=== PATIENT | female | born 1960 | race Caucasian/White ===

== ENCOUNTER → 2020-02-19 | Outpatient (CLI) | payer BC | LOC: MAMMO 13:52 | PROVIDERS: ATTEND Obstetrics & Gynecology | DX: Z12.31 Encounter for screening mammogram for malignant neoplasm of breast (principal) | CPT/HCPCS: 77067 ==

== ENCOUNTER 2020-03-04 13:57 | Emergency (ER) | payer BC ==
[~2020-03-04] VITALS: Ht 157.5 cm; Wt 68.0 kg
--- NOTE | 2020-03-04 14:17 | Emergency Department Note ---
History of Present Illnes History of Present Illness Chief Complaint: General Medicine Complaints History of Present Illness This is a 59 year old female . presented to ed c/o vag bleeding sent to ed per Dr Arellano for eval Historian: Patient Arrival Mode: Car Past Medical/Family History Physician Review I have reviewed the patient's past medical and family history. Any updates have been documented here. Past Medical History Recent Fever: No Clinical Suspicion of Infectio: No New/Unexplained Change in Ment: No Social History Smoking Cessation: Never Smoker Alcohol Use: None Any Illegal Drug Use: No TB Exposure/Symptoms: No Physically hurt or threatened: No Family History Family history of heart diseas: No Other Last Tetanus: unk Any Pre-Existing Lines (PICC,: No Review of Systems Review of Systems Constitutional: Reports no symptoms EENTM: Reports no symptoms Cardiovascular: Reports no symptoms Respiratory: Reports no symptoms Gastrointestinal: Reports no symptoms Genitourinary: Reports other (vag bleeding ) Musculoskeletal: Reports no symptoms Integumentary: Reports no symptoms Neurological: Reports no symptoms Psychological: Reports no symptoms Endocrine: Reports no symptoms Hematological/Lymphatic: Reports no symptoms Physical Exam Related Data Allergies: Coded Allergies: Penicillins (Verified Allergy, Severe, 05/26/14) Sulfa (Sulfonamide Antibiotics) (Verified Allergy, Severe, 05/26/14) Triage Vital Signs Vital Signs Date Time Temp Pulse Resp B/P (MAP) Pulse Ox O2 Delivery O2 Flow Rate FiO2 03/04/20 14:06 98.6 84 16 146/106 100 Room Air Vital signs reviewed: Yes Physical Exam CONSTITUTIONAL Constitutional: Present well-developed, Present well-nourished HENT HENT: Present normocephalic, Present atraumatic, Present oropharynx clear/moist, Present nose normal HENT L/R: Present left ext ear normal, Present right ext ear normal EYES Eyes: Reports PERRL, Reports conjunctivae normal NECK Neck: Present ROM normal PULMONARY Pulmonary: Present effort normal, Present breath sounds normal CARDIOVASCULAR Cardiovascular: Present regular rhythm, Present heart sounds normal, Present capillary refill normal, Present normal rate GASTROINTESTINAL Abdominal: Present soft, Present nontender, Present bowel sounds normal GENITOURINARY Genitourinary: Present other (c/o vag bleeding ) SKIN Skin: Present warm, Present dry MUSCULOSKELETAL Musculoskeletal: Present ROM normal NEUROLOGICAL Neurological: Present alert, Present oriented x 3, Present no gross motor or sensory deficits PSYCHOLOGICAL Psychological: Present mood/affect normal, Present judgement normal Results Laboratory Laboratory Laboratory Tests Test 03/04/20 15:09 03/04/20 14:19 White Blood Count 7.90 x10e3/uL (4.8-10.8) Red Blood Count 3.42 x10e6/uL (3.6-5.1) Hemoglobin 8.5 g/dL (12.0-16.0) Hematocrit 28.4 % (34.2-44.1) Mean Corpuscular Volume 83.0 fL (81-99) Mean Corpuscular Hemoglobin 24.9 pg (28-32) Mean Corpuscular Hemoglobin Concent 29.9 g/dL (31-35) Red Cell Distribution Width 23.9 % (11.7-14.4) Platelet Count 367 x10e3/uL (140-360) Neutrophils (%) (Auto) 68.3 % (38.7-80.0) Lymphocytes (%) (Auto) 22.9 % (18.0-39.1) Monocytes (%) (Auto) 6.3 % (4.4-11.3) Eosinophils (%) (Auto) 1.4 % (0.0-6.0) Basophils (%) (Auto) 0.6 % (0.0-1.0) Neutrophils # (Auto) 5.4 (2.1-6.9) Lymphocytes # (Auto) 1.8 (1.0-3.2) Monocytes # (Auto) 0.5 (0.2-0.8) Eosinophils # (Auto) 0.1 (0.0-0.4) Basophils # (Auto) 0.1 (0.0-0.1) Absolute Immature Granulocyte (auto 0.04 x10e3/uL (0-0.1) Prothrombin Time 13.1 seconds (11.9-14.5) Prothromb Time International Ratio 0.94 Activated Partial Thromboplast Time 29.5 seconds (23.8-35.5) Sodium Level 139 mmol/L (136-145) Potassium Level 3.9 mmol/L (3.5-5.1) Chloride Level 105 mmol/L (98-107) Carbon Dioxide Level 23 mmol/L (22-29) Anion Gap 14.9 mmol/L (8-16) Blood Urea Nitrogen 7 mg/dL (7-26) Creatinine 1.06 mg/dL (0.57-1.11) Estimat Glomerular Filtration Rate 53 ML/MIN (60-) BUN/Creatinine Ratio 7 (6-25) Glucose Level 101 mg/dL (74-118) Calcium Level 9.2 mg/dL (8.4-10.2) Total Bilirubin 0.3 mg/dL (0.2-1.2) Aspartate Amino Transf (AST/SGOT) 13 IU/L (5-34) Alanine Aminotransferase (ALT/SGPT) 7 IU/L (0-55) Alkaline Phosphatase 74 IU/L (40-150) Creatine Kinase 61 IU/L (29-168) Creatine Kinase MB 1.00 ng/mL (0-5.0) Troponin I < 0.001 ng/mL (0-0.300) Total Protein 7.6 g/dL (6.5-8.1) Albumin 4.3 g/dL (3.5-5.0) Globulin 3.3 g/dL (2.3-3.5) Albumin/Globulin Ratio 1.3 (0.8-2.0) Lab results reviewed: Yes Imaging Imaging results reviewed: Yes Impressions [place] [address] Patient Name: BIRGIT MOTLEY MR #: [id number] : 1960 Age/Sex: 59/F Req #: [id number] Adm Physician: Ordered by: LIDIA ROSA MD Report #: [id number] Location: ER Room/Bed: Procedure: [id number] DX/CHEST SINGLE (PORTABLE) Exam Date: 03/04/20 Exam Time: 1500 REPORT STATUS: Signed TECHNIQUE: Frontal view of the chest. INDICATION: ^surgery ^[id number] ^1499 COMPARISON: None IMPRESSION: Lines and hardware: None. Heart and mediastinum: Unremarkable. Lungs and pleura: No focal airspace consolidation. No pleural effusion. No pneumothorax. Soft tissues and bones: No acute abnormality. Signed by: Sp Paredes MD on 03/04/2020 3:21 PM Dictated By: SP PAREDES DO 152 Transcribed By: REYNALDO on 03/04/201520 COPY TO: LIDIA ROSA MD~ Assessment & Plan Medical Decision Making MDM This is a 59 year old female . presented to ed c/o vag bleeding sent to ed per Dr Arellano for eval pt denies cp sob n/v/d dawkins dizziness pt hemodynamically stable r/o anemia / electrolyte imbalance will check lab / d/c home if H&H ok Reassessment Reassessment spoke w/ Dr Arellano wants pt to have lab work done dIscussed lab results paln of care and f/u instructions Assessment & Plan Final Impression: (1) Uterine bleeding, dysfunctional Depart Disposition: HOME, SELF-CARE Last Vital Signs Date Time Temp Pulse Resp B/P (MAP) Pulse Ox O2 Delivery O2 Flow Rate FiO2 03/04/20 14:06 98.6 84 16 146/106 100 Room Air LIDIA ROSA MD Mar 04, 2020 14:17
[2020-03-04 14:41] LABS: BASOPHILS # (AUTO) 0.1 (0.0-0.1); BASOPHILS % 0.6 % (0.0-1.0); EOSINOPHILS # (AUTO) 0.1 (0.0-0.4); EOSINOPHILS % 1.4 % (0.0-6.0); HEMATOCRIT 28.4 % (34.2-44.1); HEMOGLOBIN 8.5 g/dL (12.0-16.0); LYMPHOCYTES # (AUTO) 1.8 (1.0-3.2); LYMPHOCYTES % 22.9 % (18.0-39.1); MEAN CORPUSCULAR HEMOGLOBIN 24.9 pg (28-32); MEAN CORPUSCULAR HGB CONC 29.9 g/dL (31-35); MONOCYTES # (AUTO) 0.5 (0.2-0.8); MONOCYTES % 6.3 % (4.4-11.3); NEUTROPHILS # (AUTO) 5.4 (2.1-6.9); NEUTROPHILS % 68.3 % (38.7-80.0); PLATELET COUNT 367 x10e3/uL (140-360); RED BLOOD COUNT 3.42 x10e6/uL (3.6-5.1); RED CELL DISTRIBUTION WIDTH 23.9 % (11.7-14.4)
--- OUTSIDE RECORDS SUMMARY | 2020-03-04 14:58 | XMS REPORT | Continuity of Care Document ---
Author Author [facility] t Organization [facility] Address [address] [place] [address] Phone Unavailable Care Team Providers Care Brand Advocate Name Role Phone JOSEMANUELCHRISTA PIERRE Attamibeckie Unavailable Payers Payer Name Policy Type Policy Number Effective Date Expiration Date S ource Problems This patient has no known problems. Allergies, Adverse Reactions, Alerts Allergy Name Allergy Type Status Severity Reaction(s) Onset Date Inacti ve Date Treating Clinician Comments Source Penicillins DA Active U 2020-01-21 00:00:[address] [facility] Sulfa (Sulfonamide Antibiotics) DA Active U 2020-01-21 00 :00:[address] [facility] Penicillins DA Active U 2019-03-18 00:00:[address] [facility] Sulfa (Sulfonamide Antibiotics) DA Active U 2019-03-18 00 :00:[address] [facility] Penicillins DA Active U 2016-10-03 00:00:[address] [facility] Sulfa (Sulfonamide Antibiotics) DA Active U 2016-10-03 00 :00:[address] [facility] Medications This patient has no known medications. Procedures This patient has no known procedures. Results Test Description Test Time Test Comments Results Result Comments Source MAMMOGRAPHY DIGITAL SCR BILAT 2020-02-19 14:31:[facility] 1960 Sex: F [facility] [address] [address] Patient Name: BIRGIT MOTLEY MR #: [id number] : 1960 Age/Sex: 59/F Req #: [id number] Adm Physician: Ordered by: CHRISTA ANNE MD Report #: [id number] Location: MAMMO Room/Bed: Procedure: [id number] MG/MAMMOGRAPHY DIGITAL SCR BILAT Exam Date: 02/19/20 Exam Time: 1400 REPORT STATUS: Signed #[id number] - [id number] #BILATERAL DIGITAL SCREENING MAMMOGRAM WITH CAD: 02/19/2020 CLINICAL: Routine screening. No prior exams were available for comparison. Current study contains 4 films. There are scattered fibroglandular elements in both breasts. Current study was also evaluated with a Computer Aided Detection (CAD) system. Benign calcification is present in the right breast. There is a 2.1 cm oval mass with an obscured margin in the left breast at 1 o'clock middle depth. No other significant masses, calcifications, or other findings are seen in either breast. IMPRESSION: INCOMPLETE: NEEDS ADDITIONAL IMAGING EVALUATION The 2.1 cm oval mass in the left breast is indeterminate. Spot compression view as well as an ultrasound are recommended. The patient will be contacted by the Mammography Department to schedule this appointment. CHANO lloyd/tana:02/26/2020 16:53:54 Sewer And Cutter Finger Buff Material: Roberta LEWIS)(Gurinder), [facility] letter sent: Additional Imaging Needed Mammogram BI-RADS: 0 Indeterminate Dictated By: CHANO ARREAGA MD 52 Transcribed By: TANA on 02/26/201652 COPY TO: CHRISTA ANNE MD URINALYSIS COMPLETE 2019-09-13 11:40:00 Test Item UA COLOR (test code = COLU) YELLOW YELLOW UA APPEARANCE (test code = APPU) HAZY CLEAR A UA GLUCOSE DIPSTICK (test code = DGLUU) norm mg/dL NEGATIVE UA BILIRUBIN DIPSTICK (test code = BILU) NEGATIVE mg/dL NEGATIVE UA KETONE DIPSTICK (test code = KETU) neg mg/dL NEGATIVE UA SPECIFIC GRAVITY (test code = SGU) 1.025 1.001-1.035 UA BLOOD DIPSTICK (test code = CHIQUI) 25 (1+) Juvenal/uL NEGATIVE A UA PH DIPSTICK (test code = RACHEL) 5.0 5.0-8.0 UA PROTEIN DIPSTICK (test code = PROU) neg mg/dL Neg-15 UA UROBILINIOGEN DIPSTICK (test code = URO) norm mg/dL 0.0-0.2 UA NITRITE DIPSTICK (test code = MICHAEL) NEGATIVE NEGATIVE UA LEUKOCYTE ESTERASE DIPSTICK (test code = LEUU) neg uL NEGA TIVE UA WBC (test code = WBCU) 0-5 per HPF 0-5 UA RBC (test code = RBCU) 3-5 per HPF 0-5 UA EPITHELIAL CELLS (test code = EPIU) Many (>10/hpf) per HPF Few A UA BACTERIA (test code = BACU) FEW per HPF NONE UA MUCUS (test code = MUCU) MANY per LPF NONE-FEW Urine Source? Clean CatchURINALYSIS [id number] 11:27:00* Test Item Value Reference Range Interpretation Comments UA COLOR (test code = COLU) YELLOW YELLOW UA APPEARANCE (test code = APPU) HAZY CLEAR A UA GLUCOSE DIPSTICK (test code = DGLUU) norm mg/dL NEGATIVE UA BILIRUBIN DIPSTICK (test code = BILU) NEGATIVE mg/dL NEGATIVE UA KETONE DIPSTICK (test code = KETU) neg mg/dL NEGATIVE UA SPECIFIC GRAVITY (test code = SGU) 1.025 1.001-1.035 UA BLOOD DIPSTICK (test code = CHIQUI) 25 (1+) Juvenal/uL NEGATIVE A UA PH DIPSTICK (test code = RACHEL) 5.0 5.0-8.0 UA PROTEIN DIPSTICK (test code = PROU) neg mg/dL Neg-15 UA UROBILINIOGEN DIPSTICK (test code = URO) norm mg/dL 0.0-0.2 UA NITRITE DIPSTICK (test code = MICHAEL) NEGATIVE NEGATIVE UA LEUKOCYTE ESTERASE DIPSTICK (test code = LEUU) neg uL NEGA TIVE UA WBC (test code = WBCU) per HPF 0-5 UA RBC (test code = RBCU) per HPF 0-5 UA EPITHELIAL CELLS (test code = EPIU) per HPF Few UA BACTERIA (test code = BACU) per HPF NONE Urine Source? Clean Catch- XR HAND 3 + V [id number] 18:39:00 FAX: Jenna Carey NP [place]: St: REG Name: BIRGIT TANG [facility] : [birth year] Age/S: 58/F [address] Unit #: [id number] Loc: [place] [address] Phys: Jenna Carey NP Acct: [id number] Dis Date: Status: REG ER PHONE #: [phone] Exam Date: 10/24/2018 1831 FAX #: [phone] Reason: pain sp fall EXAMS: CPT CODE: [id number] XR HAND 3 + [place] RT [id number] REASON FOR EXAM: pain sp fall EXAM ORDER DATE: 10/24/2018 6:15 PM Ordering Burak: Jenna Carey NP PROCEDURE: - XR HAND 3 + V RT FINDINGS: 3 views of the right hand were obtained. The osseous structures are unremarkable in size and shape. The joint spaces are maintained. No evidence of fracture. The phalanges are intact. The carpa l and metacarpal bones are unremarkable. There is normal alignment of the radiocarpal joint space IMPRESSION: Unremarkable right hand at 1839 Reported and signed by: Dani Soliz M.D. CC: Jenna Cartagena NP Technologist: Robert Gong RT (R) Saad Date/Time/By: 10/24/2018 (1838) : By: Bonnie Orig Print D/T: S: 10/24/2018 (697) PAGE 1 Signed Report
[2020-03-04 14:59] LABS: INR 0.94; PROTHROMBIN TIME 13.1 seconds (11.9-14.5)
[2020-03-04 15:00] LABS: PARTIAL THROMBOPLASTIN TIME 29.5 seconds (23.8-35.5)
[2020-03-04 15:05] LABS: ALANINE AMINOTRANSFERASE 7 IU/L (0-55); ALBUMIN 4.3 g/dL (3.5-5.0); ALBUMIN/GLOBULIN RATIO 1.3 (0.8-2.0); ALKALINE PHOSPHATASE 74 IU/L (40-150); ANION GAP 14.9 mmol/L (8-16); BLOOD UREA NITROGEN 7 mg/dL (7-26); BUN/CREATININE RATIO 7 (6-25); CALCIUM 9.2 mg/dL (8.4-10.2); CARBON DIOXIDE 23 mmol/L (22-29); CHLORIDE 105 mmol/L (98-107); CREATINE KINASE 61 IU/L (29-168); CREATININE, SERUM 1.06 mg/dL (0.57-1.11); EST GLOMERULAR FILTRATION RATE 53 ML/MIN (60-); GLUCOSE 101 mg/dL (74-118); POTASSIUM 3.9 mmol/L (3.5-5.1); SODIUM 139 mmol/L (136-145)
--- NOTE | 2020-03-04 15:24 | Diagnostic Imaging Report ---
TECHNIQUE: Frontal view of the chest. INDICATION: ^surgery ^[id number] ^1499 COMPARISON: None IMPRESSION: Lines and hardware: None. Heart and mediastinum: Unremarkable. Lungs and pleura: No focal airspace consolidation. No pleural effusion. No pneumothorax. Soft tissues and bones: No acute abnormality. Signed by: Sp Paredes MD on 03/04/2020 3:21 PM
[2020-03-04 16:07] VITALS: BP 131/74
== END 2020-03-04 16:20 | disposition home or self-care (01) ==
LOC: ER 14:55
DX: N93.8 Other specified abnormal uterine and vaginal bleeding (principal); Z11.59 Encounter for screening for other viral diseases
CPT/HCPCS: 36415; 71045; 80053; 82550; 82553; 84484; 85025; 85610; 85730; 86850; 86900; 99284; U0002

== ENCOUNTER → 2020-03-04 | Outpatient (CLI) | payer BC ==
[~2020-03-04] MED LIST: ABX PO; ARMOUR THYROID60 MG PO; COLACE100 MG PO; DOXYCYCLINE HY100 MG PO; FE C TABLET1 EACH; FERROUS SULFAT325 MG; IRON256 MG PO; KEFLEX500 MG PO; NORCO 7.5-3251 EACH PO; NP THYROID60 MG PO; THYROID MED PO; TRANEXAMIC ACI650 MG; TRANEXAMIC ACI650 MG PO; TYLENOL # 31 EA
== END ==
LOC: MAMMO 13:02
PROVIDERS: ATTEND Obstetrics & Gynecology
DX: N63.20 Unspecified lump in the left breast, unspecified quadrant (principal)

== ENCOUNTER → 2020-03-16 | Outpatient (CLI) | payer BC ==
--- NOTE | 2020-03-19 08:11 | Diagnostic Imaging Report ---
#[id number] - [id number] ULTRASOUND GUIDED BIOPSY LEFT BREAST: 03/16/2020 CLINICAL: Mass left breast. PATIENT CONSENT: According to [facility] requirements, a time out was performed, correct site was localized and the patient was consented. PROCEDURE DESCRIPTION: Using full barrier sterile technique, 1% Lidocaine local anesthesia, and real time ultrasound guidance, the mass at 1 o clock in the left breast was biopsied using a 14 ga core device. Specimens were submitted for histology. A titanium marker clip was placed at the biopsy site for future reference. A sterile bandage was applied at the entry site. The patient was sent for a post biopsy mammogram with no immediate complications noted. Correlation is made to exams dated: 03/04/2020 mammogram and 02/19/2020 mammogram - [facility]. IMPRESSION: ULTRASOUND GUIDED BIOPSY Ultrasound guided biopsy of the abnormality in the left breast anterior depth was successful. Follow-up with ACR/ACS guidelines. CAROLINA TORRES M.D. kw/:03/18/2020 16:51:13 Pulp Grinder Feeder: Renata Pina [facility], [facility] [id number]
--- NOTE | 2020-03-19 08:11 | Diagnostic Imaging Report ---
#[id number] - [id number] #UNILATERAL LEFT DIGITAL DIAGNOSTIC MAMMOGRAM POST-PROCEDURE IMAGING FOR MARKER PLACEMENT: 03/16/2020 Comparison is made to exam dated: 03/16/2020 ultrasound biopsy - [facility]. There are scattered fibroglandular elements in the left breast. There is a marker clip in the appropriate position in the left breast at 1 o'clock middle depth. This marker clip placement is at biopsy site. IMPRESSION: POST PROCEDURE MAMMOGRAM FOR MARKER PLACEMENT There was a successful marker clip placement in the left breast middle depth. Follow-up with ACR/ACS guidelines. CAROLINA lieberman/tana:03/18/2020 16:47:12 Film Replacement Orderer: Roberta JONES(R)(M), [facility] Mammogram BI-RADS: Post-procedure mammogram for marker placement
== END ==
LOC: US 12:27
PROVIDERS: ATTEND Obstetrics & Gynecology
DX: R92.8 Other abnormal and inconclusive findings on diagnostic imaging of breast (principal)
CPT/HCPCS: 19083; 77065; 88305; A4648

== ENCOUNTER 2020-04-15 06:24 | Observation (INO) | payer BC ==
[2020-04-13 13:25] LABS: BASOPHILS % 0.8 % (0.0-1.0); EOSINOPHILS # (AUTO) 0.1 (0.0-0.4); EOSINOPHILS % 1.3 % (0.0-6.0); HEMATOCRIT 37.1 % (34.2-44.1); HEMOGLOBIN 11.5 g/dL (12.0-16.0); LYMPHOCYTES # (AUTO) 1.4 (1.0-3.2); LYMPHOCYTES % 36.4 % (18.0-39.1); MEAN CORPUSCULAR HEMOGLOBIN 26.7 pg (28-32); MEAN CORPUSCULAR VOLUME 86.3 fL (81-99); MONOCYTES # (AUTO) 0.3 (0.2-0.8); MONOCYTES % 7.9 % (4.4-11.3); NEUTROPHILS # (AUTO) 2.1 (2.1-6.9); NEUTROPHILS % 53.6 % (38.7-80.0); PLATELET COUNT 376 x10e3/uL (140-360); RED CELL DISTRIBUTION WIDTH 21.2 % (11.7-14.4)
[2020-04-13 13:46] LABS: ALANINE AMINOTRANSFERASE 8 IU/L (0-55); ALBUMIN 4.2 g/dL (3.5-5.0); ALBUMIN/GLOBULIN RATIO 1.2 (0.8-2.0); ALKALINE PHOSPHATASE 43 IU/L (40-150); ANION GAP 12.2 mmol/L (8-16); BLOOD UREA NITROGEN 13 mg/dL (7-26); BUN/CREATININE RATIO 15 (6-25); CALCIUM 8.8 mg/dL (8.4-10.2); CARBON DIOXIDE 25 mmol/L (22-29); CHLORIDE 105 mmol/L (98-107); CREATININE, SERUM 0.87 mg/dL (0.57-1.11); EST GLOMERULAR FILTRATION RATE > 60 ML/MIN (60-); GLUCOSE 101 mg/dL (74-118); POTASSIUM 4.2 mmol/L (3.5-5.1); SODIUM 138 mmol/L (136-145)
[2020-04-15] VITALS (7 sets, daily range): BP systolic 147–163; BP diastolic 76–88
[~2020-04-15] VITALS: Ht 162.6 cm; Wt 73.0 kg
[~2020-04-15 06:24] MED LIST changes: -ARMOUR THYROID60 MG PO; -COLACE100 MG PO; -FERROUS SULFAT325 MG; -KEFLEX500 MG PO; -NORCO 7.5-3251 EACH PO; -TRANEXAMIC ACI650 MG; -TYLENOL # 31 EA
[2020-04-15] MEDS ORDERED: CLINDAMYCIN PHOS 900MG/ 50ML 50 ML IV ONE (08:18)
[2020-04-15] MEDS ORDERED: METRONIDAZOLE 500MG/NS 100ML 100 ML IV ONE (08:19)
[2020-04-15] MEDS ORDERED: SEVOFLURANE INHAL SOLN 250 ML PEN BTL ONE (12:25)
[2020-04-15] MEDS ORDERED: PROPOFOL IV EMULSION 10 MG/ML 20 ML VIAL ONE (12:25)
[2020-04-15] MEDS ORDERED: NEOSTIGMINE 1 MG/ML 10ML VIAL ONE (12:25)
[2020-04-15] MEDS ORDERED: ONDANSETRON HCL INJ 2MG/ML 2ML 2 MG/ML VIAL ONE (12:25)
[2020-04-15] MEDS ORDERED: LIDOCAINE HCL 2% JELLY 5 ML TUBE ONE (12:25)
[2020-04-15] MEDS ORDERED: ROCURONIUM BROMIDE 10 MG/ML 5ML VIAL IV ONE (12:25)
[2020-04-15] MEDS ORDERED: LIDOCAINE HCL 2% LOCAL INJ 5 ML SDV VIAL INJ ONE (12:25)
[2020-04-15] MEDS ORDERED: DEXAMETHASONE SOD PHOS INJ 4 MG/ML VIAL ONE (12:25)
[2020-04-15] MEDS ORDERED: GLYCOPYRROLATE INJ 0.2 MG/ML VIAL ONE (12:25)
[2020-04-15] MEDS ORDERED: MIDAZOLAM HCL 2 MG/2 ML VIAL ONE (12:36)
[2020-04-15] MEDS ORDERED: FENTANYL CITRATE/PF 100MCG/2 ML INJ ONE ×2 (12:36→15:25)
[2020-04-15] MEDS ORDERED: ESTROGENS CONJUGATED VAGINAL CR 45 GM TUBE PV ONE (12:46)
[2020-04-15] MEDS ORDERED: BUPIVACAINE 0.25% 30ML SDV ONE (12:47)
[2020-04-15] MEDS ORDERED: ONDANSETRON HCL INJ 2MG/ML 2ML 2 MG/ML VIAL IV PRN (13:30)
[2020-04-15] MEDS: LACTATED RINGER'S 1,000 ML IV SCH (13:30)
[2020-04-15] MEDS ORDERED: BISACODYL 5 MG TAB EC PO PRN (13:30)
[2020-04-15] MEDS ORDERED: KETOROLAC TROMETHAMINE 30 MG/ML VIAL IM PRN (13:30)
[2020-04-15] MEDS ORDERED: KETOROLAC TROMETHAMINE 30 MG/ML VIAL ONE (15:48)
[2020-04-15] MEDS: HYDROCODONE/APAP 5MG-325MG TAB PO PRN ×2 (17:16→21:41)
[2020-04-15] MEDS ORDERED: NORCO 7.5-3251 EACH PO (18:34)
[2020-04-15] MEDS ORDERED: KEFLEX500 MG PO (18:35)
[2020-04-15] MEDS ORDERED: ZOLPIDEM TARTRATE 5 MG TAB PO PRN (21:00)
[2020-04-16] VITALS: BP 145/88
[2020-04-16] MEDS: MEPERIDINE HCL INJ 25 MG/ML VIAL IV PRN ×3 (00:20→09:32)
[2020-04-16] MEDS: LACTATED RINGER'S 1,000 ML IV SCH ×3 (01:00→13:30)
[2020-04-16 04:00] VITALS: BP 151/92
[2020-04-16 05:20] LABS: BASOPHILS % 0.1 % (0.0-1.0); HEMATOCRIT 34.8 % (34.2-44.1); HEMOGLOBIN 10.9 g/dL (12.0-16.0); LYMPHOCYTES # (AUTO) 0.9 (1.0-3.2); LYMPHOCYTES % 7.5 % (18.0-39.1); MEAN CORPUSCULAR HEMOGLOBIN 26.7 pg (28-32); MEAN CORPUSCULAR HGB CONC 31.3 g/dL (31-35); MEAN CORPUSCULAR VOLUME 85.1 fL (81-99); MONOCYTES # (AUTO) 0.5 (0.2-0.8); MONOCYTES % 4.6 % (4.4-11.3); NEUTROPHILS # (AUTO) 10.3 (2.1-6.9); NEUTROPHILS % 87.5 % (38.7-80.0); PLATELET COUNT 291 x10e3/uL (140-360); RED BLOOD COUNT 4.09 x10e6/uL (3.6-5.1); RED CELL DISTRIBUTION WIDTH 20.8 % (11.7-14.4)
[2020-04-16 08:00] VITALS: BP 131/63
[2020-04-16 08:18] VITALS: BP 151/92
[2020-04-16] MEDS: HYDROCODONE/APAP 5MG-325MG TAB PO PRN (08:58)
[2020-04-16] MEDS ORDERED: ARMOUR THYROID60 MG PO (10:54)
[2020-04-16] MEDS ORDERED: FERROUS SULFAT325 MG (10:54)
[2020-04-16] MEDS ORDERED: DOXYCYCLINE HY100 MG PO (10:54)
[2020-04-16] MEDS ORDERED: TRANEXAMIC ACI650 MG (10:55)
[2020-04-16] MEDS ORDERED: COLACE100 MG PO (10:56)
[2020-04-16] MEDS ORDERED: TYLENOL # 31 EA (10:57)
[2020-04-16 12:06] VITALS: BP 140/76
[2020-04-16] MEDS ORDERED: ONDANSETRON HCL 4 MG ORAL DISINTEGRATING TAB PO PRN (14:15)
== END 2020-04-16 14:52 | disposition home or self-care (01) ==
LOC: OR 06:24 → PACU V 13:19 → MED/SURG 16:24
PROVIDERS: ADMIT Obstetrics & Gynecology; ATTEND Obstetrics & Gynecology
DX: N85.01 Benign endometrial hyperplasia (principal); D26.1 Other benign neoplasm of corpus uteri; N94.89 Other specified conditions associated with female genital organs and menstrual cycle; N70.91 Salpingitis, unspecified; Z20.828 Contact with and (suspected) exposure to other viral communicable diseases
CPT/HCPCS: 36415 ×2; 58262; 71046; 80053; 85025 ×2; 86850; 86900; 86920; 88307; 93005; G0378 ×2; J1100; J1885; J2001 ×2; J2175; J2250; J2405; J2704; J2710; J3010; J7121; U0002

== ENCOUNTER 2020-08-09 13:39 | Emergency (ER) | payer BC ==
[~2020-08-09] VITALS: Ht 162.6 cm; Wt 73.0 kg
[~2020-08-09 13:39] MED LIST changes: +ARMOUR THYROID60 MG PO; +COLACE100 MG PO; +FERROUS SULFAT325 MG; +KEFLEX500 MG PO; +NORCO 7.5-3251 EACH PO; +TRANEXAMIC ACI650 MG; +TYLENOL # 31 EA
[2020-08-09] MEDS ORDERED: KETOROLAC TROMETHAMINE 60 MG/2 ML VIAL IM ONE (14:30)
[2020-08-09] MEDS ORDERED: DEXAMETHASONE SOD PHOS 10 MG/1 ML VIAL IM ONE (14:30)
[2020-08-09] MEDS ORDERED: HYDROCODONE/APAP 10MG-325MG TAB PO ONE (14:30)
[2020-08-09 16:11] VITALS: BP 128/85
== END 2020-08-09 16:15 | disposition home or self-care (01) ==
LOC: ER 14:32
DX: M25.512 Pain in left shoulder (principal); M75.52 Bursitis of left shoulder; M77.8 Other enthesopathies, not elsewhere classified; E03.9 Hypothyroidism, unspecified
CPT/HCPCS: 73030; 99283; J1100; J1885

== ENCOUNTER 2020-08-18 12:49 | Emergency (ER) | payer BC ==
[~2020-08-18] VITALS: Ht 162.6 cm; Wt 73.0 kg
[2020-08-18 14:50] LABS: CLARITY,URINE SL CLOUDY (CLEAR); COLOR,URINE YELLOW (YELLOW); LEUKOCYTE ESTERASE ,URINE SMALL (NEGATIVE); NITRITE,URINE NEGATIVE (NEGATIVE)
[2020-08-18 14:51] LABS: KETONES,URINE NEGATIVE (NEGATIVE); PROTEIN,URINE DIPSTICK NEGATIVE (NEGATIVE); URINE UROBILINOGEN 0.2 mg/dL (0.2 - 1)
[2020-08-18 14:53] LABS: WBC,URINE (MAN) 0-5 /HPF (0-5)
[2020-08-18 14:54] LABS: BACTERIA,URINE FEW /HPF; EPITHELIAL CELLS,URINE FEW /LPF
[2020-08-18] MEDS ORDERED: DOXYCYCLINE HY100 MG PO (16:41)
[2020-08-18] MEDS ORDERED: CEFTRIAXONE SOD 1 GM VIAL IM ONE (16:45)
[2020-08-18] MEDS ORDERED: METRONIDAZOLE 500 MG TAB PO ONE (16:45)
[2020-08-18] MEDS ORDERED: LIDOCAINE HCL 1% 2 ML AMP ONE (17:02)
== END 2020-08-18 17:50 | disposition home or self-care (01) ==
LOC: ER 14:20
DX: N93.8 Other specified abnormal uterine and vaginal bleeding (principal); E03.9 Hypothyroidism, unspecified
CPT/HCPCS: 81001; 99283; J0696; J2001

== ENCOUNTER 2020-11-17 18:59 | Emergency (ER) | payer BC ==
[~2020-11-17] VITALS: Ht 162.6 cm; Wt 73.0 kg
[2020-11-17] MEDS ORDERED: HYDROCODONE/APAP 5MG-325MG TAB ONE (20:22)
[2020-11-17] MEDS ORDERED: CLINDAMYCIN HC150 MG PO ×2 (21:45→23:02)
[2020-11-17] MEDS ORDERED: ULTRAM50 MG PO (23:02)
[2020-11-17] MEDS ORDERED: FAMOTIDINE20 MG PO (23:02)
[2020-11-17] MEDS ORDERED: BENADRYL25 M1 PO (23:02)
[2020-11-17] MEDS ORDERED: DIPHENHYDRAMINE HCL 25 MG CAP ONE (23:13)
[2020-11-17] MEDS ORDERED: FAMOTIDINE 20 MG TAB PO ONE (23:15)
[2020-11-17] MEDS ORDERED: DIPHENHYDRAMINE HCL 25 MG CAP PO ONE (23:15)
[2020-11-17] MEDS ORDERED: ALPRAZOLAM 0.5 MG TAB PO ONE (23:15)
[2020-11-18 04:32] VITALS: BP 154/80
== END 2020-11-17 23:35 | disposition home or self-care (01) ==
LOC: ER 20:23
DX: L50.9 Urticaria, unspecified (principal); Z88.0 Allergy status to penicillin; Z88.2 Allergy status to sulfonamides
CPT/HCPCS: 93971

== ENCOUNTER 2020-11-30 18:38 | Emergency (ER) | payer BC ==
[~2020-11-30] VITALS: Ht 162.6 cm; Wt 73.0 kg
[~2020-11-30 18:38] MED LIST changes: +BENADRYL25 M1 PO; +CLINDAMYCIN HC150 MG PO; +FAMOTIDINE20 MG PO; +ULTRAM50 MG PO
== END 2020-11-30 19:45 | disposition home or self-care (01) ==
LOC: ER 19:25
DX: M79.622 Pain in left upper arm (principal); M77.8 Other enthesopathies, not elsewhere classified; E03.9 Hypothyroidism, unspecified
CPT/HCPCS: 99282

== ENCOUNTER 2021-02-08 04:50 | Emergency (ER) | payer BC ==
[~2021-02-08] VITALS: Ht 157.5 cm; Wt 72.6 kg
[2021-02-08] MEDS ORDERED: FENTANYL CITRATE/PF 100MCG/2 ML INJ IV ONE (05:15)
[2021-02-08] MEDS ORDERED: SODIUM CHLORIDE 0.9% 1000ML 1,000 ML IV STA (05:15)
[2021-02-08] MEDS ORDERED: ONDANSETRON HCL INJ 2MG/ML 2ML 2 MG/ML VIAL IV STA (05:15)
[2021-02-08 06:03] LABS: BASOPHILS % 0.4 % (0.0-1.0); EOSINOPHILS # (AUTO) 0.1 (0.0-0.4); EOSINOPHILS % 0.9 % (0.0-6.0); HEMATOCRIT 40.9 % (34.2-44.1); HEMOGLOBIN 13.2 g/dL (12.0-16.0); LYMPHOCYTES # (AUTO) 1.5 (1.0-3.2); MEAN CORPUSCULAR HEMOGLOBIN 28.8 pg (28-32); MEAN CORPUSCULAR HGB CONC 32.3 g/dL (31-35); MEAN CORPUSCULAR VOLUME 89.1 fL (81-99); MONOCYTES # (AUTO) 0.6 (0.2-0.8); MONOCYTES % 6.9 % (4.4-11.3); NEUTROPHILS # (AUTO) 5.9 (2.1-6.9); NEUTROPHILS % 72.7 % (38.7-80.0); PLATELET COUNT 323 x10e3/uL (140-360); RED BLOOD COUNT 4.59 x10e6/uL (3.6-5.1); RED CELL DISTRIBUTION WIDTH 13.1 % (11.7-14.4)
[2021-02-08 06:19] LABS: ALANINE AMINOTRANSFERASE 12 IU/L (0-55); ALBUMIN 4.2 g/dL (3.5-5.0); ALBUMIN/GLOBULIN RATIO 1.2 (0.8-2.0); ALKALINE PHOSPHATASE 87 IU/L (40-150); ANION GAP 13.3 mmol/L (8-16); BLOOD UREA NITROGEN 21 mg/dL (7-26); BUN/CREATININE RATIO 22 (6-25); CALCIUM 9.6 mg/dL (8.4-10.2); CARBON DIOXIDE 24 mmol/L (22-29); CHLORIDE 105 mmol/L (98-107); CREATINE KINASE 85 IU/L (29-168); CREATININE, SERUM 0.97 mg/dL (0.57-1.11); EST GLOMERULAR FILTRATION RATE 59 ML/MIN (60-); GLUCOSE 142 mg/dL (74-118); POTASSIUM 4.3 mmol/L (3.5-5.1); SODIUM 138 mmol/L (136-145)
[2021-02-08] MEDS ORDERED: SODIUM CHLORIDE 0.9% 50ML 50 ML ONE (06:56)
[2021-02-08] MEDS ORDERED: IOPAMIDOL 370 MG/ML 200 ML INFUS..BTL INJ ONE (06:56)
[2021-02-08 07:11] LABS: CLARITY,URINE CLEAR (CLEAR); COLOR,URINE YELLOW (YELLOW); KETONES,URINE NEGATIVE (NEGATIVE); LEUKOCYTE ESTERASE ,URINE NEGATIVE (NEGATIVE); NITRITE,URINE NEGATIVE (NEGATIVE); PROTEIN,URINE DIPSTICK NEGATIVE (NEGATIVE); URINE UROBILINOGEN 0.2 mg/dL (0.2 - 1)
[2021-02-08 07:27] LABS: BACTERIA,URINE FEW /HPF; EPITHELIAL CELLS,URINE FEW /LPF; RBC,URINE 0-5 /HPF (0-5)
[2021-02-08] MEDS ORDERED: KETOROLAC TROMETHAMINE 30 MG/ML VIAL IV STA (08:57)
[2021-02-08] MEDS ORDERED: DIPHENHYDRAMINE HCL INJ 50 MG/ML VIAL IV ONE (09:00)
[2021-02-08] MEDS ORDERED: REGLAN10 MG PO (09:03)
[2021-02-08 09:25] VITALS: BP 157/97
[2021-02-08 09:44] LABS: INR 0.97; PROTHROMBIN TIME 13.1 seconds (11.9-14.5)
[2021-02-08 09:45] LABS: PARTIAL THROMBOPLASTIN TIME 26.3 seconds (23.8-35.5)
== END 2021-02-08 09:47 | disposition home or self-care (01) ==
LOC: ER 05:16
DX: R10.9 Unspecified abdominal pain (principal); R11.2 Nausea with vomiting, unspecified; R55 Syncope and collapse; R07.89 Other chest pain; R51.9 Headache, unspecified; W18.30XA Fall on same level, unspecified, initial encounter; E78.5 Hyperlipidemia, unspecified; E03.9 Hypothyroidism, unspecified
CPT/HCPCS: 36415; 70450; 71045; 74177; 80053; 81001; 82550; 82553; 84484; 85025; 85610; 85730; 93005; 99284; J1200; J1885; J2405; J3010; J7030; Q9967

== ENCOUNTER 2021-07-27 18:29 | Emergency (ER) | payer BC ==
[~2021-07-27] VITALS: Ht 157.5 cm; Wt 72.6 kg
[~2021-07-27 18:29] MED LIST changes: +REGLAN10 MG PO
== END 2021-07-27 19:23 | disposition home or self-care (01) ==
LOC: ER 18:37
DX: N95.1 Menopausal and female climacteric states (principal); E78.5 Hyperlipidemia, unspecified; E03.9 Hypothyroidism, unspecified
CPT/HCPCS: 99282

== ENCOUNTER 2021-09-14 10:05 | Emergency (ER) | payer BC, OTHER ==
[~2021-09-14] VITALS: Ht 157.5 cm; Wt 72.6 kg
[2021-09-14] MEDS ORDERED: IBUPROFEN 600 MG TAB PO ONE (10:30)
[2021-09-14] MEDS ORDERED: ACETAMINOPHEN 325 MG TAB PO ONE (10:30)
[2021-09-14] MEDS ORDERED: IBUPROFEN600 MG PO (11:55)
[2021-09-14] MEDS ORDERED: ONDANSETRON ODT4 MG PO (11:55)
== END 2021-09-14 12:12 | disposition home or self-care (01) ==
LOC: ER 10:11
DX: S00.83XA Contusion of other part of head, initial encounter (principal); Y04.8XXA Assault by other bodily force, initial encounter; Y92.89 Other specified places as the place of occurrence of the external cause; E78.5 Hyperlipidemia, unspecified; E03.9 Hypothyroidism, unspecified
CPT/HCPCS: 70450; 70486; 72125; 99284

== ENCOUNTER 2021-11-24 13:36 | Emergency (ER) | payer BC ==
[~2021-11-24] VITALS: Ht 157.5 cm; Wt 72.6 kg
[~2021-11-24 13:36] MED LIST changes: +IBUPROFEN600 MG PO; +ONDANSETRON ODT4 MG PO
[2021-11-24] MEDS ORDERED: NAPROSYN500 MG PO (16:12)
[2021-11-24] MEDS ORDERED: CLEOCIN HCL300 MG PO (16:12)
== END 2021-11-24 15:50 | disposition home or self-care (01) ==
LOC: ER 15:00
DX: K04.7 Periapical abscess without sinus (principal); K05.10 Chronic gingivitis, plaque induced; E78.5 Hyperlipidemia, unspecified; E03.9 Hypothyroidism, unspecified
CPT/HCPCS: 99282

== ENCOUNTER 2021-12-22 11:48 | Emergency (ER) | payer BC ==
[~2021-12-22] VITALS: Ht 157.5 cm; Wt 72.6 kg
[~2021-12-22 11:48] MED LIST changes: +CLEOCIN HCL300 MG PO; +NAPROSYN500 MG PO
== END 2021-12-22 13:00 | disposition home or self-care (01) ==
LOC: ER 11:54
DX: Z76.0 Encounter for issue of repeat prescription (principal); E03.9 Hypothyroidism, unspecified; E78.5 Hyperlipidemia, unspecified; F17.210 Nicotine dependence, cigarettes, uncomplicated
CPT/HCPCS: 99282

== ENCOUNTER 2022-10-18 10:50 | Emergency (ER) | payer BC, OTHER ==
[~2022-10-18] VITALS: Ht 157.5 cm; Wt 72.6 kg
[2022-10-18 11:06] VITALS: O2SAT 100
[2022-10-18] MEDS ORDERED: CYCLOBENZAPRINE5 MG PO (11:13)
[2022-10-18] MEDS ORDERED: ARMOUR THYROID30 MG PO (11:14)
== END 2022-10-18 11:20 | disposition home or self-care (01) ==
LOC: ER 10:57
DX: M79.601 Pain in right arm (principal); E78.5 Hyperlipidemia, unspecified; E03.9 Hypothyroidism, unspecified; F17.210 Nicotine dependence, cigarettes, uncomplicated
CPT/HCPCS: 99282